=== PATIENT | male | born 1950 | race Caucasian/White ===

== ENCOUNTER 2024-07-05 07:16 | Day surgery (SDC) | payer OTHER ==
[~2024-07-05] VITALS: Ht 152.4 cm; Wt 47.7 kg
[~2024-07-05 07:16] MED LIST: ALBU18HF12 IH; ALLO100T PO; ASPI-1451 PO; CHOL500013 PO; DORZ10DR10 OU; FAMO20 PO; FINA5TAB41 PO; FLUT16H NASAL; HYDR500 PO; MONT-40 PO; PRAZ1 PO; SODIUM CHLORIDE 0.9% 1,000 ML ONE; TAMS0.4C94 PO
[2024-07-05] MEDS ORDERED: BENZOCAINE 20% 50 MCG/SPRAY 57 GM TP ONE (07:17)
[2024-07-05] MEDS ORDERED: LIDOCAINE 2% 11 ML JELLY TP ONE (07:17)
[2024-07-05] MEDS ORDERED: LIDOCAINE 4% 50 ML SOLUTION TP ONE (07:17)
[2024-07-05] MEDS ORDERED: ALBUTEROL SULFATE 2.5 MG/0.5 ML NEB SOLUTION NEB ONE (07:17)
[2024-07-05] MEDS ORDERED: FentaNYL CITRATE PF 100 MCG/2 ML VIAL ONE (07:55)
[2024-07-05] MEDS ORDERED: MIDAZOLAM HCL 2 MG/2 ML VIAL ONE (07:56)
[2024-07-05] MEDS: SODIUM CHLORIDE 0.9% 1,000 ML IV ONE (08:18)
[2024-07-05 10:20] VITALS: PULSE 80; RESP 20; O2SAT 96
[2024-07-05] MEDS ORDERED: MethylPREDNISolone SOD SUCC 125 MG/2 ML VIAL ONE (10:25)
[2024-07-05] MEDS: MethylPREDNISolone SOD SUCC 125 MG/2 ML VIAL IVP ONE (10:58)
== END 2024-07-05 12:55 | disposition home or self-care (01) ==
LOC: SURGERY 07:16
PROVIDERS: ATTEND Internal Medicine Critical Care Medicine
DX: R05.3 Chronic cough (principal); J38.4 Edema of larynx; B37.0 Candidal stomatitis; M10.9 Gout, unspecified; Z88.0 Allergy status to penicillin; Z98.890 Other specified postprocedural states; Z20.822 Contact with and (suspected) exposure to COVID-19; Z79.82 Long term (current) use of aspirin
CPT/HCPCS: 31623; 87206; 87101; 87220; 87070; 88108; 31624; 71045; 87015; J3010; J2250; J2919; J7030; J7613; Z7610